=== PATIENT | male | born 1980 | race Caucasian/White ===

== ENCOUNTER 2020-05-29 22:19 | Emergency (ER) | payer MEDICAID ==
[~2020-05-29] VITALS: Ht 167.6 cm; Wt 113.4 kg
--- NOTE | 2020-05-29 22:30 | NUR ---
Dr Pizarro at bedside for MSE.
[2020-05-29] MEDS ORDERED: potassium PO (22:38)
[2020-05-29] MEDS ORDERED: SULFAMETH/TRIMETH 800/160 MG TABLET PO ONE (22:45)
--- NOTE | 2020-05-29 22:45 | NUR ---
Cleaned patients bilateral leg with warm soap water, and rinsed with clean water. Pat dry with towel. Cleansed open ulcer on R lower leg with normal saline. Apply non adhesive dressing. and Cover with clean dry dressing. Pt tolerated nursing intervention well.
[2020-05-29] MEDS ORDERED: SULFAMETH/TRIMETH 800/160 MG TABLET ONE (22:53)
--- NOTE | 2020-05-29 23:42 | NUR ---
Patient cleared for discharged to home. Written and verbal after care instructions given. Stressed follow up with PCP, as referred by MD, or return to ER for worsening s/s, explained signs and symptoms of worsening infection, importance of hygiene, importance of adherence to antibiotic regimen, and follow up with PCP. Patient verbalizes understanding of instructions. Wheeled patient out and assisted him to his private vehicle. Reinforced teachings to brother. Left in stable condition.
[2020-05-29 23:52] VITALS: BP 125/84
== END 2020-05-29 23:54 | disposition home or self-care (01) ==
LOC: ER 22:22
DX: R60.0 Localized edema (principal); L97.819 Non-pressure chronic ulcer of other part of right lower leg with unspecified severity; F17.210 Nicotine dependence, cigarettes, uncomplicated; F19.10 Other psychoactive substance abuse, uncomplicated
CPT/HCPCS: A4217; A4663

== ENCOUNTER 2021-09-23 20:31 | Inpatient (IN) | payer MEDICAID ==
[~2021-09-23] VITALS: Ht 170.2 cm; Wt 86.2 kg
[~2021-09-23 20:31] MED LIST: potassium PO
[2021-09-23] MEDS ORDERED: METHADONE PO (20:54)
[2021-09-23] MEDS ORDERED: ZYPREXA PO (20:54)
[2021-09-23] MEDS ORDERED: PIPERACILLIN SODIUM/TAZOBACTAM 3.375 G in IV DEXTROSE 5% 50 ML IV ONE (21:15)
[2021-09-23] MEDS ORDERED: VANCOMYCIN 1G/D5W 200 ML PIGGYBACK IV ONE (21:15)
[2021-09-23] MEDS ORDERED: PIPERACILLIN/TAZOBACTAM/D5W 50 ML IV ONE (22:12)
[2021-09-23] MEDS ORDERED: IV NS 1000 ML 1,000 ML IV ONE (23:00)
[2021-09-23] MEDS ORDERED: VANCOMYCIN IV 200 ML ONE (23:27)
[2021-09-23 23:35] LABS: HEMATOCRIT 30.1 % (36.7-47.1); MEAN CORPUSCULAR HEMOGLOBIN 25.4 uug (23.8-33.4); MEAN CORPUSCULAR VOLUME 79.7 fL (73.0-96.2); PLATELET COUNT (AUTO) 754 K/uL (152-348)
[2021-09-23 23:48] LABS: BILIRUBIN,DIRECT 0.2 mg/dL (0.0-0.2); BILIRUBIN,TOTAL 0.6 mg/dL (0.2-1.0); TOTAL PROTEIN, SERUM 7.7 g/dL (6.4-8.2)
[2021-09-24 00:02] LABS: POTASSIUM 6.4 mmol/L (3.5-5.1)
[2021-09-24 00:03] LABS: CREATININE 9.6 mg/dL (0.6-1.3)
[2021-09-24] MEDS: METHADONE HCL 10 MG TABLET PO ONE ×3 (00:10→01:19)
--- NOTE | 2021-09-24 00:11 | NUR ---
methadone not available ER MD and warehouse operator notified
[2021-09-24] MEDS ORDERED: DEXTROSE 50% 50 ML DISP.SYRIN IV ONE (00:15)
[2021-09-24] MEDS ORDERED: INSULIN REGULAR, HUMAN 5 UNIT in IV NORMAL SALINE 100 ML IV ONE ×2 (00:15)
[2021-09-24] MEDS ORDERED: ALBUTEROL SULFATE 2.5 MG/3 ML NEBU NEB ONE (00:15)
[2021-09-24] MEDS ORDERED: SODIUM POLYSTYRENE SULFONATE 15 G/60 ML LIQUID UDC PO ONE (00:15)
[2021-09-24] MEDS ORDERED: METHADONE HCL 10 MG TABLET ONE (00:30)
[2021-09-24] MEDS ORDERED: ALBUTEROL SULFATE 2.5 MG/ 0.5 ML NEBU ONE (00:38)
[2021-09-24] MEDS ORDERED: INSULIN REGULAR, HUMAN 300 UNIT/3 ML VIAL IV ONE (01:15)
[2021-09-24] MEDS ORDERED: INSULIN REGULAR, HUMAN 300 UNIT/3 ML VIAL ONE (01:45)
--- NOTE | 2021-09-24 01:54 | NUR ---
PATIENT DOES NOT RECALL CURRENT HOME MEDICATIONS AND DOSAGES AT THIS TIME.
--- NOTE | 2021-09-24 02:55 | NUR ---
rechecked blood sugar result 115. MD notified will continue to monitor
--- NOTE | 2021-09-24 03:22 | NUR ---
Dr. Clay speaking to William Wagner CIGAR MACHINE FEEDER
--- NOTE | 2021-09-24 03:29 | NUR ---
rechecked blood sugar result: 97 notified
[2021-09-24] MEDS ORDERED: MAGNESIUM HYDROXIDE 30 ML LIQUID UDC PO PRN (03:45)
[2021-09-24] MEDS ORDERED: ONDANSETRON 4 MG/2 ML VIAL IV PRN (03:45)
[2021-09-24] MEDS ORDERED: REMEDY ESSENTIAL ZINC PASTE 113 GM TP PRN (03:45)
[2021-09-24] MEDS ORDERED: TEMAZEPAM 15 MG CAPSULE PO PRN (03:45)
[2021-09-24] MEDS ORDERED: MORPHINE SULFATE 2 MG/1 ML DISP.SYRIN IV PRN (03:45)
[2021-09-24] MEDS ORDERED: ACETAMINOPHEN 325 MG TABLET PO PRN (03:45)
[2021-09-24] MEDS ORDERED: HYDROCODONE/APAP 5-325MG TABLET PO PRN (03:45)
[2021-09-24] MEDS ORDERED: IV NS 1000 ML 1,000 ML IV PRN (03:45)
--- NOTE | 2021-09-24 05:49 | NUR ---
report given JED Rueda
[2021-09-24] MEDS ORDERED: CLINDAMYCIN PHOSPHATE IV 600 MG in IV DEXTROSE 5% 100 ML IV SCH (06:00)
[2021-09-24] MEDS ORDERED: PIPERACILLIN/TAZO 2.25 G in IV DEXTROSE 5% 50 ML IV SCH (06:00)
--- NOTE | 2021-09-24 06:02 | NUR ---
per ER MD, discontinue methadone. med returned to home housekeeper
--- NOTE | 2021-09-24 06:35 | NUR ---
Pt. admitted to room 301A , under care of William Wagner NP [employer] completed AA/O no s/s of distress transfered tp 3rd floor
[2021-09-24] MEDS ORDERED: SODIUM BICARBONATE 8.4% 100 MEQ in IV D5 1/2 NS 1000 ML 1,000 ML IV PRN (06:45)
[2021-09-24] MEDS ORDERED: PANTOPRAZOLE SODIUM 40 MG TABLET.DR PO SCH (07:00)
--- NOTE | 2021-09-24 07:15 | NUR ---
Received patient from ER per iron, alert x3-4, no shortness of breath noted, with bilateral wound on both lower extremities, no complain of pain. instructed for the use of call light, bed on the lowest height position.Routine admission care rendered.
--- NOTE | 2021-09-24 07:30 | NUR ---
received patient in bed awake and oriented x2 tired and lethargic stated he didn't sleep much last night. c/o abdominal pain and asked for morphine. seen and examined by dr. beckman and ordered for pain, wound and surgery consult noted. dr. rose called by dr. beckman. will cont to monitor.
[2021-09-24 08:04] LABS: HEMATOCRIT 28.8 % (36.7-47.1); MEAN CORPUSCULAR HEMOGLOBIN 25.9 uug (23.8-33.4); MEAN CORPUSCULAR VOLUME 78.6 fL (73.0-96.2); PLATELET COUNT (AUTO) 738 K/uL (152-348)
[2021-09-24 08:57] LABS: BILIRUBIN,TOTAL 0.7 mg/dL (0.2-1.0); MAGNESIUM 2.2 mg/dL (1.8-2.4); POTASSIUM 5.8 mmol/L (3.5-5.1); TOTAL PROTEIN, SERUM 6.9 g/dL (6.4-8.2)
[2021-09-24 08:58] LABS: THYROID STIMULATING HORMONE 11.981 mIU/mL (0.358-3.740)
[2021-09-24] MEDS ORDERED: PANTOPRAZOLE SODIUM 40 MG VIAL IV SCH (09:00)
--- NOTE | 2021-09-24 09:00 | NUR ---
able to insert iv on right hand 22g with good back flow noted.
[2021-09-24 09:41] LABS: PHOSPHOROUS 13.4 mg/dL (2.5-4.9)
--- NOTE | 2021-09-24 09:43 | NUR ---
critical lab results received as follows: wbc 33.2, calcium 5.1, bun 148, [employer] 9, phos 13.4. dr. beckman on the floor and relayed lab results stated dr. phipps is already on the case no new orders received.
--- NOTE | 2021-09-24 10:10 | NUR ---
report given to lucien leigh for continuity of care
--- NOTE | 2021-09-24 10:15 | NUR ---
RECEIVED PATIENT AWAKE AND ANSWERING QUESTIONS APPROPRIATELY C/O PAIN BOTH LOWER EXTREMITIES. NO SIGNS OF DISTRESS, SR ON MONITOR 78/MIN. DR NJ IN AND EXAMINED PATIENT. PATIENT WITH ONGOING IV NA BICARB 125 MLS/HR. CLOSELY MONITOR
[2021-09-24 11:42] VITALS: BP 122/85
--- NOTE | 2021-09-24 11:50 | NUR ---
WOUND CARE CONSULT: PT REFUSED SKIN ASSESSMENT EXCEPT FOR RT THIGH AREA WHICH PRESENTS DEEP SCAR, PRESENT ON ADMISSION. LEGS ARE WRAPPED WITH DRY DRESSINGS. ADMISSION PHOTOS INDICATE MULTIPLE LOWER EXTREMITY WOUNDS. DR DENNEY NOTIFIED OF DPM CONSULT REQUEST. RECOMMENDATIONS MADE FOR SKIN PROTECTION. DISCUSSED WITH NURSING STAFF. MD IN AGREEMENT WITH PLAN OF CARE.
[2021-09-24] MEDS ORDERED: MORPHINE SULFATE 4 MG/1 ML DISP.SYRIN IV PRN (12:30)
--- NOTE | 2021-09-24 13:58 | NUR ---
Tried renal scan at 11am but pt refused due to pain. 2nd attempt just now and pt not stable, lucien leigh said to come back later.
[2021-09-24 14:00] LABS: *BILIRUBIN,URIN NEGATIVE (NEGATIVE); *BLOOD, URINE NEGATIVE (NEGATIVE); *COLOR,URINE YELLOW (YELLOW); *KETONES,URINE NEGATIVE (NEGATIVE); *UROBILINOGEN,URINE 0.2 E.U./dl (NORMAL); LEUKOCYTE ESTERASE ,URINE TRACE (NEGATIVE); NITRITE, URINE NEGATIVE (NEGATIVE); UGLUCOSE NEGATIVE (NEGATIVE)
[2021-09-24 14:16] LABS: *CREATININE,URINE 99.8 mg/dL (30-125); *URINE TOTAL PROTEIN RANDOM 90.9 mg/dL (<150/24HR)
--- NOTE | 2021-09-24 15:05 | NUR ---
DR NJ NOTIFIED ABOUT PATIENT SATURATION 81-86% ON 100% NRM, BS 156, NO PULSE BUT PATIENT R=10, UNABLE TO RED BP. PLACED. RAMIN ROONEY ANNOUNCED
--- NOTE | 2021-09-24 15:08 | NUR ---
CODE BLUE ANNOUNCED AT BEDSIDE
--- NOTE | 2021-09-24 15:33 | NUR ---
PRONOUNCED BY DR JUAN ALBERTO LANCE MD.
--- NOTE | 2021-09-24 15:35 | NUR ---
DR NJ NOTIFIED SO WITH PATIENT BROTHER BENSON ABOUT PATIENT EXPIRATION.
--- NOTE | 2021-09-24 15:40 | NUR ---
DR NJ NOTIFIED AND SPOKE WITH THE BROTHER BENSON SUSHILA
--- NOTE | 2021-09-24 16:10 | NUR ---
BROTHER CAME IN, BELONGINGS GIVEN.. POST MORTEM CARE DONE THEN [facility] [place]
[2021-09-24] MEDS ORDERED: SODIUM BICARBONATE 8.4% 50 MEQ/50 ML DISP.SYRIN IV ONE (16:49)
[2021-09-24] MEDS ORDERED: EPINEPHRINE 1:10,000 1 MG/10 ML DISP.SYRIN IV ONE (16:49)
[2021-09-24 17:12] LABS: *CLARITY,URINE HAZY (CLEAR); BACTERIA,URINE FEW /HPF (NONE SEEN); RBC,URINE 0-3 /HPF (0-3); SQUAMOUS EPITHELIAL CELL,UR FEW /HPF (NONE SEEN); YEAST,URINE MODERATE /HPF (NONE SEEN)
[2021-09-24 20:40] LABS: BAND % (MANUAL) 7 % (0-10); LYMPHOCYTES % (MANUAL) 2 % (20-40); MONOCYTES % (MANUAL) 3 % (2-10); NEUTROPHILS % (MANUAL) 88 % (42-75)
[2021-09-24 20:42] LABS: BAND % (MANUAL) 6 % (0-10); LYMPHOCYTES % (MANUAL) 2 % (20-40); MONOCYTES % (MANUAL) 3 % (2-10); NEUTROPHILS % (MANUAL) 89 % (42-75)
[2021-09-25 09:09] LABS: COMPLEMENT, C3 SERUM 98 mg/dL (82-167); COMPLEMENT, C4 SERUM 26 mg/dL (12-38)
[2021-09-25 10:10] LABS: *ANTI-SCLERODERMA-70 AB <0.2 AI (0.0-0.9); *SJOGREN'S ANTI-SS-A <0.2 AI (0.0-0.9); *SJOGREN'S ANTI-SS-B <0.2 AI (0.0-0.9); *SMITH ANTIBODIES <0.2 AI (0.0-0.9)
[2021-09-26 12:06] LABS: HEPATITIS B SURFACE AG Negative (Negative)
[2021-09-27 16:09] LABS: ANTI-DNA(DS) AB, QN <1 IU/mL (0-9); CORTISOL 63.4 ug/dL (.)
== END 2021-09-24 15:33 | DRG 247 ==
LOC: ER 20:32 → TELE3 09-24 06:10
PROVIDERS: ADMIT Family Medicine; ATTEND Family Medicine
PROC: 5A12012 Performance of Cardiac Output, Single, Manual (ICD-10-PCS; principal; 2021-09-24)
PROC: B546ZZA Ultrasonography of Right Subclavian Vein, Guidance (ICD-10-PCS; principal; 2021-09-24)
PROC: 05H533Z Insertion of Infusion Device into Right Subclavian Vein, Percutaneous Approach (ICD-10-PCS; principal; 2021-09-24)
DX: K56.2 Volvulus (principal); N17.0 Acute kidney failure with tubular necrosis; E43 Unspecified severe protein-calorie malnutrition; I96 Gangrene, not elsewhere classified; E87.1 Hypo-osmolality and hyponatremia; E83.51 Hypocalcemia; E88.09 Other disorders of plasma-protein metabolism, not elsewhere classified; D63.8 Anemia in other chronic diseases classified elsewhere; E86.1 Hypovolemia; L03.115 Cellulitis of right lower limb; L03.116 Cellulitis of left lower limb; E87.5 Hyperkalemia; E03.9 Hypothyroidism, unspecified; F17.210 Nicotine dependence, cigarettes, uncomplicated; D72.829 Elevated white blood cell count, unspecified; R73.9 Hyperglycemia, unspecified; F19.11 Other psychoactive substance abuse, in remission; F11.21 Opioid dependence, in remission; N18.9 Chronic kidney disease, unspecified; S71.101A Unspecified open wound, right thigh, initial encounter; X58.XXXA Exposure to other specified factors, initial encounter; Y93.9 Activity, unspecified; L97.829 Non-pressure chronic ulcer of other part of left lower leg with unspecified severity; L97.819 Non-pressure chronic ulcer of other part of right lower leg with unspecified severity; Z68.29 Body mass index [BMI] 29.0-29.9, adult; Z83.3 Family history of diabetes mellitus; Z82.49 Family history of ischemic heart disease and other diseases of the circulatory system; Z20.822 Contact with and (suspected) exposure to COVID-19; S81.802A Unspecified open wound, left lower leg, initial encounter; S81.801A Unspecified open wound, right lower leg, initial encounter; Y92.89 Other specified places as the place of occurrence of the external cause
CPT/HCPCS: 36415; 70030-TC; 73700; 82533; 83605; 83690; 83735; 84100; 84156; 84300; 84443; 84484; 84550; 85025; 85651; 86038; 86160; 86706; 86803; 87040; 87070; 87077; 87086; 87340; 92950; 93005; A4217; A4663; A6209; C9113; G0378; J0171; J1815; J2270; J2543; J3370; J3490; J7030; J7040; J7060